=== PATIENT | male | born 1990 | race Caucasian/White ===

== ENCOUNTER 2024-11-29 16:19 | Emergency (ER) | payer OTHER, SELFPAY ==
[2024-11-29] VITALS (11 sets, daily range): BP systolic 116–157; BP diastolic 69–100; PULSE 52–72; RESP 14–21; TEMP 36.4; O2SAT 87–100; BMI 33.0
--- NOTE | 2024-11-29 16:55 | EKG_ITS ---
[address] [address] Test Date: 2024-11-29 Pat Name: Aquilino Kwok Department: [facility] Room: Gender: Male [employer] Developer: BRITTA : 1990 Requested By: Order Number: [id number] Reading MD: Benjamin Smith Measurements Intervals [place] Rate: 59 P: 47 [place]: 148 QRS: -4 QRSD: 98 T: 23 QT: 408 QTc: 403 Interpretive Statements Sinus bradycardia with sinus arrhythmia Electronically Signed On 11-30-2024 18:59:58 PDT by Benjamin Smith
[2024-11-29 17:01] LABS: Add Manual Diff / Slide Review NO; Basophils Absolute Auto 0 /uL (0-100); Basophils Percent Auto 0.6 % (0-2); Eosinophils Absolute Auto 300 /uL (0-450); Eosinophils Percent Auto 4.1 % (2-4); Hematocrit 49.1 % (41-53); Lymphocytes Absolute Auto 2500 /uL (1100-4500); Lymphocytes Percent Auto 29.6 % (25-40); Mean Corpuscular HGB Conc 34.6 % (30-36); Mean Corpuscular Hemoglobin 30.4 PG (26-34); Mean Corpuscular Volume 87.8 fL (80-100); Monocytes Absolute Auto 700 /uL (0-900); Monocytes Percent Auto 8.4 % (3-14); Neutrophils Absolute Auto 4900 /uL (1500-7000); Neutrophils Percent Auto 57.3 % (50-75); Platelet Count 316 X10^3/uL (150-400); Red Cell Distribution Width 12.9 % (11.6-14.8); White Blood Cell Count 8.5 X10^3/uL (4.5-11.0)
[2024-11-29 17:07] LABS: Alanine Aminotransferase 107 IU/L (<50); Albumin 4.9 g/dL (3.5-5.0); Albumin Globulin Ratio 1.2 (1.0-2.8); Alkaline Phosphatase 59 U/L (38-126); Aspartate Aminotransferase 58 IU/L (17-59); BUN Creatinine Ratio 13.5 (6-22); Bilirubin Total 0.7 mg/dL (0.2-1.3); Blood Urea Nitrogen 13 mg/dL (9-20); Calcium 9.7 mg/dL (8.4-10.2); Carbon Dioxide 27 mmol/L (22-32); Chloride 101 mmol/L (98-107); Estimated Glomerular Filt Rate > 60 mL/min (>60); Globulin 4.1 g/dL (1.7-4.1); Glucose 103 mg/dL (70-99); HEMOLYSIS < 15 (0-50); Lipase 56 U/L (23-300); Sodium 139 mmol/L (137-145)
--- NOTE | 2024-11-29 18:07 | ED.ABDPAIN ---
HPI - Abdominal Pain General Chief Complaint: Abdominal Pain Stated Complaint: Rt side Abdominal pain, has shunt Time Seen by Provider: 11/29/24 18:07 Source: patient, RN notes reviewed and old records reviewed Mode of arrival: Ambulatory Limitations: no limitations History of Present Illness HPI narrative: 34-year-old male history of dyslipidemia on atorvastatin, hydrocephalus with FIELD APPRAISER shunt in place last aneurysm was a year ago at [facility] presents with complaint of right lower quadrant pain that started about 2 days ago was initially intermittent but has become constant. Has been increasing in pain now radiates towards his flank. Patient states it started anteriorly. He states movement does make it somewhat worse at this point. He denies any fevers. He was had decreased appetite, nausea but no vomiting. Denies any new changes to headaches, he was had diarrhea 3-4 times daily which she describes as dark brown not black or bloody, states no urinary symptoms, no hematuria. No testicular pain. States only daily medication is atorvastatin. Denies any other prior surgeries besides his FIELD APPRAISER shunt placed and revision a year ago which he states does come to the right side and had a single incision in his last surgery on the right upper abdomen. Patient denies any drug allergies. No tobacco, social alcohol he denies any regular, no recreational drugs. Follows with primary care through [facility]. Follows with the [facility] for his shunt. Related Data Allergies Allergy/AdvReac Type Severity Reaction Status Date / Time No Known Allergies AdvReac Verified 11/29/24 16:25 Review of Systems Review of Systems ROS Unobtainable: All systems reviewed & are unremarkable except as noted in HPI and below Patient History Social History Smoking Status: Never smoker Smoking Status: Never smoker Exam Narrative Exam Narrative: GENERAL: Alert and oriented x three, male in mild distress HEENT: Head normocephalic, atraumatic, EOMI, pupils reactive, face symmetric, moist mucous membranes NECK: Supple, full range of motion CARDIOVASCULAR: Regular rate and rhythm without murmurs, rubs or gallops. RESPIRATORY: Breath sounds equal bilaterally, no wheezes rales or rhonchi. ABDOMEN: Soft, generalized tenderness greatest at the right lower quadrant. Normoactive bowel sounds all 4 quadrants. No guarding or rebound, rigidity, no mass : Mild right flank CVA tenderness, no left CVA tenderness. EXTREMITIES: Normal range of motion, no clubbing or edema. Neurovascularly intact NEUROLOGICAL: Cranial nerves II through XII grossly intact. Moving all extremities SKIN: Warm, dry, no petechiae, no rashes or lesions. Initial Vital Signs Initial Vital Signs: Vital Signs Temperature 97.6 F 11/29/24 16:24 Pulse Rate 72 11/29/24 16:24 Respiratory Rate 20 11/29/24 16:24 Blood Pressure 152/100 H 11/29/24 16:24 Pulse Oximetry 100 11/29/24 16:24 Oxygen Delivery Method Room Air 11/29/24 16:24 Course Orders Ordered: Discontinued Medications Ketorolac Tromethamine (Ketorolac 30 Mg/Ml Vial) 15 mg IV NOW ONE Stop: 11/29/24 18:17 Last Admin: 11/29/24 18:42 Dose: 15 mg Documented By: Katiuska Ondansetron HCl (Ondansetron 4 Mg/2 Ml Inj) 4 mg IV NOW PRN PRN Reason: Nausea And Vomiting Ondansetron HCl (Ondansetron 4 Mg Odt) 4 mg PO NOW PRN PRN Reason: Nausea And Vomiting Vital Signs Vital signs: Vital Signs - 8 hr 11/29/24 19:30 11/29/24 19:30 11/29/24 20:18 Pulse Rate 69 52 L Respiratory Rate 21 14 Blood Pressure 116/79 129/83 Pulse Oximetry 97 97 Oxygen Delivery Method Room Air MDM - Abdominal Pain Lab Data 11/29/24 16:45 11/29/24 16:45 Labs: Lab Results 11/29/24 Range/Units 16:45 WBC 8.5 (4.5-11.0) X10^3/uL RBC 5.60 (4.5-5.9) X10^6/uL Hgb 17.0 (13.5-17.5) g/dL Hct 49.1 (41-53) % MCV 87.8 (80-100) fL MCH 30.4 (26-34) PG MCHC 34.6 (30-36) % RDW 12.9 (11.6-14.8) % Plt Count 316 (150-400) X10^3/uL Neut % (Auto) 57.3 (50-75) % Lymph % (Auto) 29.6 (25-40) % [place] % (Auto) 8.4 (3-14) % Eos % (Auto) 4.1 H (2-4) % Baso % (Auto) 0.6 (0-2) % Neut # (Auto) 4900 (5326-9353) /uL Lymph # (Auto) 2500 (3110-9934) /uL [place] # (Auto) 700 (0-900) /uL Eos # (Auto) 300 (0-450) /uL Baso # (Auto) 0 (0-100) /uL Sodium 139 (137-145) mmol/L Potassium 4.0 (3.4-5.1) mmol/L Chloride 101 (98-107) mmol/L Carbon Dioxide 27 (22-32) mmol/L BUN 13 (9-20) mg/dL Creatinine 0.96 (0.66-1.25) mg/dL Estimated GFR > 60 (>60) mL/min BUN/Creatinine Ratio 13.5 (6-22) Glucose 103 H (70-99) mg/dL Calcium 9.7 (8.4-10.2) mg/dL Total Bilirubin 0.7 (0.2-1.3) mg/dL AST 58 (17-59) IU/L ALT 107 H (<50) IU/L Alkaline Phosphatase 59 (38-126) U/L Total Protein 9.0 H (6.3-8.2) g/dL Albumin 4.9 (3.5-5.0) g/dL Globulin 4.1 (1.7-4.1) g/dL Albumin/Globulin Ratio 1.2 (1.0-2.8) Lipase 56 (23-300) U/L Point of care testing: Urine Dip Bedside Urine Glucose Negative Bedside Urine Bilirubin - Negative Bedside Urine Ketone - Negative Urine Specific [place] 1.015 Bedside Urine Occult Blood - Negative Bedside Urine pH 6.0 Bedside Urine Protein - Negative Bedside Urine Urobilinogen - Negative Bedside Urine Nitrite - Negative Bedside Urine Leukocytes - Negative Esterase ECG Data Attestation: I personally reviewed and interpreted this ECG as follows: Interpretation: EKG shows sinus bradycardia with sinus arrhythmia, no acute ST changes. Rate of 59 [place] 148 QRS of 98 QTC of 408. MDM Narrative Medical decision making narrative: Show white count 8.5 hemoglobin of 17 platelets 316, chemistries show normal electrolytes, BUN creatinine, glucose of 103 and ALT is 107 AST is 58 bilirubin is 0.7 lipase is 56. Point of care urine is negative. EKG shows sinus bradycardia with sinus arrhythmia, no acute ST changes.? Rate of 59 [place] 148 QRS of [address] abdomen pelvis shows shows no acute change FIELD APPRAISER shunt catheter terminates adjacent to stomach was then left lower quadrant no adjacent loculated fluid collections no nephrolithiasis, normal gallbladder normal appendix. Patient had ketorolac 34-year-old male complaint of 2 days of right lower quadrant pain becoming increasingly constant painful but now radiating to the flank as well. Patient has been afebrile has had nausea but no vomiting. Has had diarrhea with dark but not black or bloody stools. Denies any headaches. Patient presents with concern for possible appendicitis versus issue with his shunt. Labs show no clear cause, point of care urine does not suggest hematuria. CT imaging does not show any clear source of patient's symptoms. He has generalized tenderness but no rebound no guarding. Reviewed findings with the patient he feels comfortable returning home prefers to do ibuprofen/Tylenol but does have some tablets of ketorolac. He was aware not to take with other NSAIDs. Discussed return precautions. Discharge Plan Departure Patient Disposition: Home Clinical Impression: Abdominal pain Instructions: DI for Abdominal Pain-Adult Activity Restrictions/Additional Instructions: Follow up for recheck, please call to set up follow up with your physician. You can take acetaminophen up to a 1000 mg every 6 hours and/or ibuprofen up to 600 mg every 6 hours. You can take your home prescription of ketorolac but do not take it with ibuprofen or other NSAIDs such as naproxen or alleve. Please return for fevers, rapidly worsening abdominal back or flank pain, new rash or skin changes, lightheadedness or passing out, vomiting, new black or bloody stools, inability difficulty with urination or other new or concerning changes. Stand Alone Forms: Patient Portal/API
--- NOTE | 2024-11-29 18:16 | DI.CT.S_ITS ---
PROCEDURE: CT ABDOMEN PELVIS W CON INDICATIONS: RLQ pain, moving to flank, hx PEDIATRIC OCCUPATIONAL THERAPIST shunt TECHNIQUE: After the administration of intravenous contrast, axial sections acquired from the lung bases to the pubic symphysis. Coronal and sagittal reformats were performed. For radiation dose reduction, the following was used: automated exposure control, adjustment of mA and/or kV according to patient size. COMPARISON: None. FINDINGS: Image quality: Diagnostic. Lower Chest: No significant findings. ABDOMEN: Liver: No solid mass. Gallbladder: No radiopaque gallstones or wall thickening. Biliary ducts: No biliary dilation. Pancreas: No ductal dilation. Spleen: Size is within normal limits. Adrenal Glands: No adrenal nodules. Kidneys and Ureters: No hydronephrosis. No solid mass. No complex renal cystic lesion which requires follow up. Stomach and Bowel: Normal colonic caliber, without significant wall thickening. Peritoneum: No abnormal intraperitoneal fluid. No free air. PEDIATRIC OCCUPATIONAL THERAPIST shunt catheters terminate adjacent to the stomach and within the left lower quadrant; no adjacent loculated fluid collections. Ventral Wall: No significant ventral hernia. Abdominal Nodes: No retroperitoneal or mesenteric adenopathy by size criteria. Vessels: Aorta and inferior vena cava are normal in size. PELVIS: Pelvic Organs: Unremarkable. Bladder: No bladder wall thickening, accounting for underdistention. Pelvic Nodes: No enlarged lymph nodes. Miscellaneous: No inguinal hernias are seen. Bones: No aggressive osseous abnormality. IMPRESSION: No findings to explain the patient's right lower quadrant pain. No nephrolithiasis. Normal gallbladder. Normal appendix. Dictated by: Jorge Delatorre M.D. on 11/29/2024 at 18:52 Approved by: Jorge Delatorre M.D. on 11/29/2024 at 18:54
[2024-11-29] MEDS: KETOROLAC 30 MG/ML VIAL 15 MG IV (18:42)
== END 2024-11-29 20:22 | disposition home or self-care (01) ==
PROVIDERS: Student in an Organized Health Care Education/Training Program; Emergency Provider Emergency Medicine
DX: R10.31 Right lower quadrant pain (principal); R00.1 Bradycardia, unspecified
CPT/HCPCS: 74177; 80053; 81003; 83690; 85025; 93005; 96374; 99284; J1885; Q9967